=== PATIENT | female | born 1975 | race Caucasian/White ===

== ENCOUNTER 2017-05-09 20:29 | Emergency (ER) | payer OTHER ==
[2017-05-09] MEDS ORDERED: ACETAMINOPHEN 325 MG TABLET PO ONE (20:54)
--- NOTE | 2017-05-09 20:55 | RADIOLOGY REPORT (SQ) ---
EXAM DESCRIPTION: WRIST LEFT 3 VIEWS COMPLETED DATE/TIME: 05/09/2017 8:45 pm REASON FOR STUDY: fall with pain COMPARISON: None. NUMBER OF VIEWS: Three views. TECHNIQUE: AP, lateral, and oblique radiographic images acquired of the left wrist. LIMITATIONS: None. FINDINGS: MINERALIZATION: Normal. BONES: Comminuted fracture of the distal radius with dorsal tilt. Ulnar styloid fracture. SOFT TISSUES: No soft tissue swelling. No foreign body. OTHER: No other significant finding. IMPRESSION: Comminuted distal radial fracture with dorsal tilt. Ulnar styloid fracture. TECHNICAL DOCUMENTATION: JOB ID: [id number] [employer]- All Rights Reserved
[2017-05-09] MEDS ORDERED: MORPHINE SULFATE 10 MG/ML INJ IV PRN (21:31)
[2017-05-09] MEDS ORDERED: PROPOFOL INJ 200 MG/20 ML VIAL IV ONE (21:32)
--- NOTE | 2017-05-09 22:52 | ER Document Report ---
ED General - General Chief Complaint: Wrist Injury Stated Complaint: FALL/LEFT WRIST INJURY Time Seen by Provider: 05/09/17 21:30 Notes: Patient is a 41-year-old female without past medical history who presents with left wrist pain. Patient states that she was using her son's new however report when she fell off landing on her outstretched left hand. She states that she immediately noticed severe, constant, aching pain to the left wrist after the fall. She states that she has been unable to move the wrist secondary to pain as any attempt at movement dramatically worsens the pain. Nothing improves the pain. She is right-hand dominant. She denies any prior injury to the left wrist. She denies sustaining any additional injuries during today's fall. - Related Data Allergies/Adverse Reactions: No Known Allergies Allergy (Verified 07/15/13 11:17) Past Medical History - General Information source: Patient - Social History Smoking Status: Never Smoker Frequency of alcohol use: None Drug Abuse: None Lives with: Family Family History: Reviewed & Not Pertinent - Past Medical History Cardiac Medical History: Denies: Hx Coronary Artery Disease, Hx Heart Attack, Hx Hypertension Pulmonary Medical History: Reports: Hx Asthma Denies: Hx Bronchitis, Hx COPD, Hx Pneumonia Neurological Medical History: Denies: Hx Cerebrovascular Accident, Hx Seizures Musculoskeltal Medical History: Denies Hx Arthritis Past Surgical History: Denies: Hx Hysterectomy - Immunizations Hx Diphtheria, Pertussis, Tetanus Vaccination: - unsure Review of Systems - Review of Systems Notes: Constitutional: Negative for fever. Eyes: Negative for visual changes. ENT: Negative for facial injury Cardiovascular: Negative for chest injury. Respiratory: Negative for shortness of breath. Gastrointestinal: Negative for abdominal injury. Genitourinary: Negative for genital injury Musculoskeletal: Positive for left wrist injury Skin: Negative for laceration/abrasions. Neurological: Negative for head injury. Physical Exam - Vital signs Vitals: Temp Pulse Resp BP Pulse Ox 98.4 F 86 18 117/77 100 05/09/17 20:47 05/09/17 20:47 05/09/17 20:47 05/09/17 20:47 05/09/17 20:47 Interpretation: Normal Notes: PHYSICAL EXAMINATION: GENERAL: Well-appearing, well-nourished and in no acute distress. HEAD: Atraumatic, normocephalic. EYES: Pupils equal round and reactive to light, extraocular movements intact, sclera anicteric, conjunctiva are normal. ENT: nares patent, oropharynx clear without exudates. Moist mucous membranes. NECK: Normal range of motion, supple without lymphadenopathy LUNGS: Breath sounds clear to auscultation bilaterally and equal. No wheezes rales or rhonchi. HEART: Regular rate and rhythm without murmurs. Capillary refill is less than 1 second in all digits of the left hand. 2+ radial pulses bilaterally. ABDOMEN: Soft, nontender, normoactive bowel sounds. No guarding, no rebound. No masses appreciated. EXTREMITIES: Obvious deformity of the left wrist. RMU motor and sensory distribution is intact. NEUROLOGICAL: No focal neurological deficits. Moves all extremities spontaneously and on command. PSYCH: Normal mood, normal affect. SKIN: Warm, Dry, normal turgor, no rashes or lesions noted. Course - Re-evaluation Re-evalutation: 05/09/17 22:51 Patient presents with a left distal radius fracture in the setting of falling off a however board. She is right-hand dominant. There is an obvious deformity of the wrist. Capillary refill less than 2 seconds in all digits of the left hand. RMU sensory and motor distribution is intact. Will reduce under procedural sedation and placed in a sugar tong splint with orthopedic surgical follow-up. She did not sustain any additional injuries today. - Vital Signs Vital signs: Temp Pulse Resp BP Pulse Ox 98.4 F 103 H 17 134/94 H 96 05/09/17 20:47 05/09/17 23:30 05/10/17 01:16 05/10/17 01:16 05/10/17 01:16 - Diagnostic Test Radiology reviewed: Image reviewed, Reports reviewed Radiology results interpreted by me: 05/09/17 23:52 Wrist x-ray: Left distal radius fracture with displacement Postreduction x-ray: Improved anatomic alignment of the distal radius in the AP and lateral views Procedures - Conscious Sedation Conscious sedation Time started: 23:00 Time completed: 23:11 Consent obtained: Yes Indication: Left wrist reduction Prior complications: Procedural sedation Normal healthy pt.: P1. - ASA Classification Airway Evaluation: Normal anatomy Mallampati Classification: Class 1 Used during procedure: Suction available, IV access obtained, Pulse ox on pt., court monitor on pt. Medications administered: Diprivan Reversal agents: None I personally performed/intraservice time: Sedation, Procedure, 30 min or less Complications: No - Immobilization Left Wrist Time completed: 02:00 Pre-Proc Neuro Vasc Exam: Normal Immobilizer type: Sugar tong Performed by: Provider assisted Post-Proc Neuro Vasc Exam: Normal Alignment checked and good: Yes - Joint Reduction/Fracture Care Left Wrist Time completed: 23:11 Consent obtained: Yes Conscious sedation: Yes Pre-procedure NV exam: Yes Fracture: Closed Manipulation comment: Hyperextension and anterior traction Post-procedure NV exam: Yes Post-reduction x-ray: Joint reduced Reduction attempts: 1 Complications: No Discharge - Discharge Clinical Impression: Fracture of left distal radius Qualifiers: Encounter type: initial encounter Fracture type: closed Fracture morphology: unspecified fracture morphology Qualified Code(s): S52.502A - Unspecified fracture of the lower end of left radius, initial encounter for closed fracture Condition: Good Disposition: HOME, SELF-CARE Additional Instructions: For your pain: Take ibuprofen 600 mg and acetaminophen 1000 mg every 6 hours together as needed for pain. If this does not control your pain you may take 15 mg of oral morphine every 4 hours as needed. Please be very careful about using the oral morphine and only use this for severe pain. Please return immediately to the emergency department if you notice the color does not immediately return to your fingers when you touch them, you develop increasing pain to the wrist, numbness in the hand, fever, or any other symptoms that are worrisome to you. Please contact the orthopedic surgeon's office tomorrow for scheduling a follow-up appointment within the next 1 week. Prescriptions: Morphine Sulfate [Morphine Ir 15 mg Tablet] 15 mg PO Q4HP PRN #12 tablet PRN Reason: Referrals: CHRIS VACA MD [ACTIVE STAFF] - Follow up in 1 week
[2017-05-09] MEDS ORDERED: HYDROCODONE/ACETAMINOPHEN 5-325 MG (6 TAB/ER DISP) PO PRN (23:29)
[2017-05-09] MEDS ORDERED: HYDROMORPHONE HCL INJ/PF 2 MG/ML AMPULE IV ONE (23:29)
--- NOTE | 2017-05-10 00:43 | RADIOLOGY REPORT (SQ) ---
EXAM DESCRIPTION: WRIST LEFT 3 VIEWS CLINICAL HISTORY: 41 years, Female, POST REDUC FILMS COMPARISON: .09.18 LIMITATIONS: None. FINDINGS: Interval reduction near-anatomic alignment of previously described fracture sites of the distal left radius and ulna as seen through casting-bandaging material. IMPRESSION: Fracture follow-up. 2011 [employer]- All Rights Reserved
[2017-05-10 01:19] VITALS: BP 134/94
--- NOTE | 2017-05-12 12:17 | RADIOLOGY REPORT (SQ) ---
EXAM DESCRIPTION: WRIST LEFT 2 VIEWS; NOT FOR OR FLUORO TO 1 HR COMPLETED DATE/TIME: 05/10/2017 7:30 am REASON FOR STUDY: REDUC W/FL COMPARISON: Left wrist films 05/09/2017 FLUOROSCOPY TIME: 8 seconds total fluoro time 5 digital C-arm images saved to PACS. TECHNIQUE: Intra-operative images acquired during surgical procedure to evaluate progress. NUMBER OF IMAGES: 5 digital C-arm images LIMITATIONS: None. FINDINGS: Postreduction in the emergency room with fluoroscopy. C-arm images are submitted. Final images demonstrate good alignment at the comminuted distal left radius and ulnar styloid fractures. Please see the operative report for further details IMPRESSION: Closed reduction left wrist fracture in the ER, with fluoro COMMENT: Quality ID [id number]: Final reports for procedures using fluoroscopy that document radiation exp osure indices, or exposure time and number of fluorographic images (if radiation exposure indices are not available) Please consult full operative report of the attending physician for description of the procedure. TECHNICAL DOCUMENTATION: JOB ID: [id number] [employer]- All Rights Reserved
== END 2017-05-10 01:28 | disposition home or self-care (01) ==
LOC: ER 20:29
PROC: 0PSJXZZ Reposition Left Radius, External Approach (ICD-10-PCS; principal; 2017-05-09)
DX: S52.502A Unspecified fracture of the lower end of left radius, initial encounter for closed fracture (principal); V00.181A Fall from other rolling-type pedestrian conveyance, initial encounter; Y93.I9 Activity, other involving external motion
CPT/HCPCS: 99284; 99152; 96374; 96375; 76000; 73100; 73110; 25605; J2270; J1170; J2704